=== PATIENT | male | born 1995 | race Caucasian/White ===

== ENCOUNTER 2022-06-13 10:10 | Emergency (ER) | payer OTHER, SELFPAY ==
--- NOTE | ~2022-06-13 | XR_ITS ---
EXAMINATION: XR chest 2V 06/13/2022 11:49 INDICATION: Shortness of breath and cough. Wheezing. PROCEDURE: 2 view chest COMPARISON: No prior studies for comparison. FINDINGS: The lungs are clear. The cardiomediastinal silhouette is within normal limits. There are no pleural effusions. There is no pneumothorax suspected. There is elevation of the right diaphragm , suspicious for phrenic nerve paralysis. IMPRESSION: 1: NO ACUTE CARDIOPULMONARY DISEASE. Reviewed, dictated and finalized at location A. TECHNICIAN
[2022-06-13 11:06] VITALS: BP 141/88; PULSE 103; RESP 20; TEMP 36.8; O2SAT 94
[2022-06-13 11:14] VITALS: PULSE 100; O2SAT 93
--- NOTE | 2022-06-13 11:40 | ED.URI ---
HPI - URI/Sore Throat General Chief Complaint: Upper Respiratory Infection Stated Complaint: cough,sorethroat Time Seen by Provider: 06/13/22 11:33 Source: patient Mode of arrival: ambulatory Limitations: no limitations History of Present Illness HPI Narrative: Patient presents today with a 4 day history of dry cough, congestion, sore throat with intermittent wheezing that has been worsened fossae. Denies fever. He has been taking DayQuil, NyQuil, ibuprofen, and Tessalon Perles without relief. Denies any history of asthma. Reports 2 episodes of pneumonia since March. Related Data Home Medications Medication Instructions Recorded Confirmed fexofenadine 30 mg tablet 180 mg PO DAILY 06/13/22 06/13/22 Allergies Allergy/AdvReac Type Severity Reaction Status Date / Time No Known Allergies Allergy Verified 06/13/22 11:10 Review of Systems Review of Systems: CONSTITUTIONAL: Denies body aches, fever, chills, or sweats. EYES: Denies visual changes, redness, or discharge. ENT: Denies rhinorrhea, or otalgia.+ congestion, sore throat CARDIOVASCULAR: Denies chest pain, palpitations, or edema. RESPIRATORY: + cough, wheezing GASTROINTESTINAL: Denies abdominal pain, nausea, vomiting, or diarrhea. GENITOURINARY: Denies dysuria or hematuria. SKIN: Denies rash, itching, or wounds. MUSCULOSKELETAL: Denies back pain, joint pain, or myalgia. NEUROLOGIC: Denies headache, numbness, tingling, or weakness. PSYCH: Denies depression or anxiety. [facility] Past Medical History Medical History DDD (degenerative disc disease) Lumbar pain Obesity RACHELLE (obstructive sleep apnea) Osteoarthritis of spine Pre-diabetes Thoracic spine pain Vitamin B12 deficiency Family History Family History Father Diabetes mellitus Acute myocardial infarction Grandparent Diabetes mellitus Social History Social History Smoking status: Never smoker Alcohol intake: current Substance use: never Agree to blood products: Yes Comments Reviewed. Pt has been instructed to follow up with his PCP regarding his elevated blood pressure today. Exam Narrative: GENERAL: Well-appearing, over-nourished, and in no acute distress. HEAD: Normocephalic, atraumatic. EYES: EOMI. No redness or drainage. Conjunctivae normal. ENT: Mucous membranes pink and moist. Nares congested. No rhinorrhea. TMs normal bilaterally. Throat mildly erythematous without edema or exudate. Uvula midline. NECK: Normal AROM. Supple. No lymphadenopathy. CHEST: No respiratory distress. Clear to auscultation. HEART: Regular rate and rhythm. No murmur appreciated. Normal peripheral pulses. EXTREMITIES: Normal range of motion. SKIN: Warm, dry, no rash. Capillary refill normal. Normal skin turgor. NEURO: No focal deficits. Alert and oriented x3. Gait steady. PSYCH: Normal affect. No signs of depression or anxiety. Course Course Level of Care: Express Care Visit Vital Signs Vital signs: Vital Signs Temperature 98.2 F 06/13/22 11:06 Pulse Rate 103 H 06/13/22 11:06 Respiratory Rate 20 06/13/22 11:06 Blood Pressure 141/88 H 06/13/22 11:06 Pulse Oximetry 94 06/13/22 11:06 Oxygen Delivery Room Air 06/13/22 11:06 Temperature 98.2 F 06/13/22 11:06 Pulse Rate 100 06/13/22 11:14 Respiratory Rate 20 06/13/22 11:06 Blood Pressure 141/88 H 06/13/22 11:06 Pulse Oximetry 93 06/13/22 11:14 Oxygen Delivery Room Air 06/13/22 11:14 Reviewed. Pt has been instructed to follow up with his PCP regarding his elevated blood pressure today. MDM - URI/Sore Throat Differential Diagnosis Differential diagnosis: Likely upper respiratory infection, viral infection, bronchitis, pharyngitis and other (Strep throat, pneumonia) Lab Data Attestation: I reviewed the patient's lab res
== END 2022-06-13 12:23 | disposition home or self-care (01) ==
PROVIDERS: Emergency Provider Nurse Practitioner; PCP Family Medicine
DX: J06.9 Acute upper respiratory infection, unspecified (principal); E66.9 Obesity, unspecified; Z68.44 Body mass index [BMI] 60.0-69.9, adult; M47.819 Spondylosis without myelopathy or radiculopathy, site unspecified; R73.03 Prediabetes
CPT/HCPCS: 71046; 87081; 87880; 99213; G0463

== ENCOUNTER 2022-09-02 08:34 | Outpatient (CLI) | payer OTHER, SELFPAY ==
--- NOTE | 2022-09-19 16:20 | WPDSLEEPSTUD ---
Sleep Study Date of Study: 09/02/22 Ordering Provider: Noemi Waite DO Interpreting Physician: Noemi Waite DO Sleep Study Type: CPAP Titration Height: 1.75 m Weight: 181.437 kg Body Mass Index: 59.1 Neck Circumference (inches): 18.5 [place]: 13 Reason for Sleep Study Severe RACHELLE on SNAP test Sleep History The patient is a 27-year-old male with GERD, pre diabetes, chronic low back pain with degenerative disc disease, morbid obesity and previously diagnosed sleep apnea that had a titration study ordered due to the severity of his sleep apnea and his hypoxemia. The patient rarely awakens from sleep short of breath. He frequently awakens at night with heartburn, belching or cough. He constantly snores loudly enough that others complain. He rarely has trouble sleeping when he has a cold. He rarely wakes up gasping for air throughout the night. He constantly has breathing problems at night observed by himself or others. He denies sweating excessively at night. He denies having heart palpitations or irregular heartbeats during the night. He occasionally falls asleep during the day but never while driving. He denies sleep paralysis and cataplexy. He rarely has trouble at school or work due to sleepiness. He frequently experiences vivid dreamlike scenes upon awakening or falling asleep. He denies feeling afraid of going to sleep. He rarely has nightmares. He occasionally remembers his dreams. He occasionally has thoughts racing through his mind. He rarely feels sad or depressed. He occasionally has anxiety. He denies having muscular tension. He occasionally notices parts of his body jerk. He rarely kicks during the night. He frequently has crawling and aching feelings in his legs and rarely experiences leg pain during the night. He denies grinding his teeth during sleep and denies awakening with morning jaw pain. He is occasionally bothered by pain during the day but rarely awakened by pain during the night. He occasionally wakes up feeling stiff in the morning. He rarely wakes up with sore or achy muscles. He rarely wakes up with pain in the neck, spine or other joints. He goes to bed at 10:00 p.m. on weekdays and 11:00 p.m. on the weekends. It takes him 30 minutes to fall asleep. He wakes up 6 times throughout the night to urinate. He is able to fall back asleep within 10 minutes. He wakes up at 6:00 a.m. on weekdays and 8:00 a.m. on the weekends. He typically gets 4 hours of sleep per night. He will stay in bed for 15 minutes after waking up in the morning. He currently lives with his girlfriend. He does not consume any caffeinated beverages within 2 hours of bedtime. He does not engage in physical exercise before bedtime. He will watch television before falling asleep. He will take naps in the afternoon or the evening and they are refreshing. He drinks 2 caffeinated beverages per day. He consumes 1 alcoholic beverage per week. He denies tobacco and recreational drug use. [facility] Past Medical History Medical History DDD (degenerative disc disease) Lumbar pain Obesity RACHELLE (obstructive sleep apnea) Osteoarthritis of spine Pre-diabetes Thoracic spine pain Vitamin B12 deficiency Family History Family History Father Diabetes mellitus Acute myocardial infarction Grandparent Diabetes mellitus Social History Social History Smoking status: Never smoker Alcohol intake: current Substance use: never Lack of Transportation: No Lack of Food: Never True Current Housing: I Have Housing Concerned About Future Housing: No Difficulty Paying Gas/Electric Bills: No Difficulty Paying for Meds: No Currently Unemployed: No Education: Trade/Vocational Certificate Difficulty w/ Childcare or Family Care: No Living arrangem
[2022-09-19 16:23] VITALS: BMI 59.1
== END 2022-09-03 07:00 | disposition home or self-care (01) ==
PROVIDERS: PCP Family Medicine; Visit Provider Family Medicine
DX: G47.33 Obstructive sleep apnea (adult) (pediatric) (principal)
CPT/HCPCS: 95811